=== PATIENT | female | born 1955 | race Caucasian/White ===

== ENCOUNTER 2018-10-28 09:37 | Emergency (ER) | payer MEDICAID, OTHER ==
[~2018-10-28] VITALS: Ht 154.9 cm; Wt 73.0 kg
[~2018-10-28 09:37] MED LIST: ADV25050 IH; ALBU8.5H8 IH; HYDR-3980 PO; LETR2.5T PO; LOSA50TA14 PO; ONDA4TAB14 PO; SIMV20TA PO
[2018-10-28 10:04] VITALS: Ht 154.9 cm; Wt 73.0 kg
[2018-10-28] MEDS ORDERED: morphine 4 MG/ML VIAL IV STA (10:21)
[2018-10-28] MEDS ORDERED: ONDANSETRON 4 MG INJ IV STA (10:21)
[2018-10-28 12:24] VITALS: BP 130/76; PULSE 81; RESP 20
== END 2018-10-28 12:25 | disposition home or self-care (01) ==
LOC: E/R 09:37
DX: R10.84 Generalized abdominal pain (principal); R11.2 Nausea with vomiting, unspecified; J45.909 Unspecified asthma, uncomplicated
CPT/HCPCS: 74176; 80053; 83690; 85025; 96374; 96375; J2270; J2405; Z7502